=== PATIENT | female | born 1995 | race Caucasian/White ===

== ENCOUNTER → 2023-04-08 11:23 | Outpatient (CLI) | payer BC, SELFPAY ==
--- NOTE | 2023-04-08 09:36 | DI.RAD_ITS ---
Exam(s) XR WRIST LT COMP NAVICULAR EXAM: XR WRIST LT COMP NAVICULAR CLINICAL HISTORY: PAIN LEFT WRIST M25.532 INJURY CONCERN SCAPHOID INJURY DISTAL WRIST FX. TECHNIQUE: 2D digital imaging was performed of the left wrist. Four images were obtained. Scaphoid , PA, oblique and lateral views were obtained. COMPARISON: No exams were available for comparison FINDINGS: BONES: No acute fracture is present. No bony destructive lesion is seen. JOINTS: The carpal bones are normally aligned. SOFT TISSUE: Normal. IMPRESSION: Unremarkable radiographs of the left wrist. DATA REPOSITORY: RADIATION DOSE DELIVERED:
== END ==
PROVIDERS: PCP Family Medicine; Visit Provider Physician Assistant Medical
DX: M25.532 Pain in left wrist (principal)
CPT/HCPCS: 73110

== ENCOUNTER 2023-09-02 10:15 | Outpatient (CLI) | payer BC, SELFPAY ==
[2023-09-02 10:40] LABS: HCG Quant, Pregnancy 5159 mIU/mL (1-3)
== END 2023-09-02 10:16 | disposition home or self-care (01) ==
LOC: LBO 10:16
PROVIDERS: PCP Family Medicine; Visit Provider Obstetrics & Gynecology
DX: O03.9 Complete or unspecified spontaneous abortion without complication (principal)
CPT/HCPCS: 36415; 84702

== ENCOUNTER 2023-09-05 05:01 | Outpatient (CLI) | payer BC, SELFPAY ==
[2023-09-05 14:51] LABS: HCG Quant, Pregnancy 2848 mIU/mL (1-3)
== END 2023-09-05 05:02 | disposition home or self-care (01) ==
LOC: LBO 05:01
PROVIDERS: PCP Family Medicine; Visit Provider Obstetrics & Gynecology
DX: O03.9 Complete or unspecified spontaneous abortion without complication (principal)
CPT/HCPCS: 36415; 84702

== ENCOUNTER 2023-09-07 07:39 | Emergency (ER) | payer BC, SELFPAY ==
[2023-09-07 07:41] VITALS: BP 165/79; PULSE 82; RESP 14; TEMP 36.4; O2SAT 100
--- NOTE | 2023-09-07 07:52 | ED.GENADUL_ITS ---
HPI General Mode of arrival: ambulatory . Date/Time Provider Initiated Documentation: 09/07/23 07:39 . Limitations to Documentation: no limitations . Information obtained by: patient . History of Present Illness 28 year old F presents to the emergency department with the chief complaint of Pelvic cramping and vaginal bleeding, described as moderate, Quality is described as constant, Patient reports no radiation. Patient started experiencing this hour(s) (3) and it has been constant. No relieving factors improve symptom(s), No exacerbating factors reported . Patient notes denies chest pain, fever/chills and shortness of breath. Related Data Home Medications Medication Instructions Recorded Confirmed [id number] 18 mg-FA 400 1 tab PO DAILY 09/02/23 09/07/23 mcg-calcium 500 mg-vit K 50 mcg tablet (Women's Multivitamin) ibuprofen 800 mg tablet 800 mg PO Q8H #60 tabs 09/07/23 ondansetron 4 mg disintegrating 4 mg PO Q8H PRN nausea and 09/07/23 tablet vomiting #30 tabs Previous Rx's Medication Instructions Recorded ibuprofen 800 mg tablet 800 mg PO Q8H #60 tabs 09/07/23 ondansetron 4 mg disintegrating 4 mg PO Q8H PRN nausea and 09/07/23 tablet vomiting #30 tabs Allergies Allergy/AdvReac Type Severity Reaction Status Date / Time aspirin Allergy Mild Nausea Unverified 09/07/23 08:20 General Stated Complaint: CLINICAL APPLICATIONS MANAGER SIMIN: 3 Review of Systems All systems reviewed & are unremarkable except as noted in HPI and below Constitutional Constitutional: Denies chills and Denies fever(s) Cardiovascular Cardiovascular: Denies chest pain and Denies dyspnea Respiratory Respiratory: Denies cough and Denies dyspnea Gastrointestinal Gastrointestinal: Reports cramping, Reports nausea and Reports vomiting Genitourinary Genitourinary: Denies dysuria Exam Const General: no acute distress Orientation: alert HENRI Head: normal to inspection Ears: external ears normal General nose exam: external nose normal Mouth: moist mucous membranes Eyes General: appearance normal, both eyes and all related structures Neck Neck: normal visual inspection Resp Effort & Inspection: normal respiratory effort and able to speak in complete sentences Cardio Rate: regular rate GI Palpation: soft, not firm and no guarding Skin General skin exam: no rashes or lesions noted Neuro General: patient alert and patient oriented x3 Extrem General: normal to inspection Psych Mental Status: mental status grossly normal Course Vital Signs Vital signs: Vital Signs Temperature 36.4 C L 09/07/23 07:41 Pulse 82 09/07/23 07:41 Respiratory Rate 14 09/07/23 07:41 Blood Pressure 165/79 H 09/07/23 07:41 Pulse Oximetry 100 09/07/23 07:41 Temperature 36.4 C L 09/07/23 07:41 Pulse 82 09/07/23 07:41 Respiratory Rate 14 09/07/23 07:41 Respiratory Effort Normal, Non-Labored 09/07/23 07:48 Blood Pressure 165/79 H 09/07/23 07:41 Blood Pressure Position Supine 09/07/23 07:41 Pulse Oximetry 100 09/07/23 07:41 Oxygen Delivery Method Room Air 09/07/23 07:41 Oxygen Flow Rate 0 09/07/23 07:41 Pain Level 8 09/07/23 07:41 Medical Decision Making 28-year-old female who states she had a miscarriage about 2 weeks ago and finished a course of miso, comes in with increased pelvic cramping and vaginal bleeding starting this morning. She states she is wearing a adult size pad and is soaking through that every hour. Denies any trouble breathing, loss of consciousness. She called her CLINICAL APPLICATIONS MANAGER who referred her here for blood work and an ultrasound. Patient hemodynamically stable on arrival, abdomen is not distended, no guarding or rebound localizes the pain to the lower pelvic region. Will proceed with CBC CMP and obtain pelvic ultrasound and consult CLINICAL APPLICATIONS MANAGER. Patient's labs unremarkable, no significant anemia. Ultrasound read as cystic structure in the vaginal canal likely the retained products of conception now in the vaginal canal. Patient states that she had a large what she thought was a clot shortly after the ultrasound. Will consult CLINICAL APPLICATIONS MANAGER Dr. Corbett evaluated the patient, request patient to have a heating pad and will observe for an hour or 2. Feel she will likely be able to go home Patient feeling better requesting discharge, only having mild cramping every 30 to 45 minutes. No bleeding. She is stable for discharge, will follow-up with CLINICAL APPLICATIONS MANAGER and return precautions given Differential Diagnosis Differential Diagnosis: retained products of conception, vaginal bleeding Medical Records Medical records reviewed: Yes I reviewed the patient's medical records. Imaging Data Radiologic Study: Attestation: I personally reviewed and interpreted this imaging study as follows: Imaging: Ultrasound and CT Scan Radiologist's impression: IMPRESSION: 1. 2.5 centimeter cyst 6 structure within the vagina likely represents the gestational sac. The endometrium is thickened. 2. Unremarkable bilateral ovaries. 3. The findings were called to Dr. Self of the emergency department. Lab Data Lab results reviewed: Yes I reviewed the patient's lab results. Quality:SDOH Health Related Social Needs: No Data to Display PFSH All Active Problems (Updated 09/07/23 @ 10:48 by Real Luque MD) Pelvic cramping (Acute) Miscarriage (Acute) Elevated blood-pressure reading without diagnosis of hypertension (Acute) Class 1 obesity with body mass index (BMI) of 33.0 to 33.9 in adult (Acute) Marijuana dependence (Acute) Anxiety (Chronic) Nicotine dependence with current use (Acute) Lactose intolerance (Acute 10/21/11) Idiopathic scoliosis (Acute 01/30/13) appropriate f/u by chiropractic Family History Mother Multiple food allergies Father Chronic arm pain Essential hypertension Other Diabetes PGM Alcohol abuse recovered PGF Personal history of malignant neoplasm PGF-pancreatic,lung Myocardial infarction PGF Social History Smoking/Tobacco Use Status: Former Tobacco Use Smokeless tobacco user: dissolvable tobacco Quit status: quit date established Smoking risk assessment performed?: Yes Alcohol Intake: current Alcohol Intake frequency: a few times a week Alcohol type: other Drug use: Daily Substance use type: marijuana Do you feel safe at home: Yes Do you feel safe in your relationship?: Yes History History 1 Para 0 Hx # Term Pregnancies 0 Multiple births 0 Hx # Pregnancies 0 Ectopic pregnancies 0 AB induced 0 Hx Number of Living Children 0 AB spontaneous 0 PAWSS Have you Been Recently Intoxicated or Drunk Within the Last 30 days?: No Have you Ever Experienced Previous Episodes of Alcohol Withdrawal?: No Have you ever Experienced Withdrawal Seizures?: No Have you ever Experienced Delirium Tremens(DT)s?: No Have you ever undergone Alcohol Rehabilitation Treatment (i.e, inpt ot outpatient treatment programs)?: No Have you ever Experienced Blackouts?: No Have you ever Combined Alcohol with other Downers within the last 90 days?: No Have you ever Combined Alcohol with any other Substance of Abuse during the last 90 days?: No Positive Blood Alcohol level on Presentation? [PCS.BAL]: No Evidence of Increased Autonomic Activity (i.e. HR>120, tremor, sweating, agitation, nausea)?: No Result: 0 Discharge Plan Disposition Patient Disposition: Home Condition: Stable Discharge Details Clinical Impression: Miscarriage, Pelvic cramping Primary Care Provider: Angy Castro ED Provider: Real Luque [place] Meds and New Rx's Prescriptions: New ibuprofen 800 mg tablet 800 mg PO Q8H Qty: 60 1RF ondansetron 4 mg tablet,disintegrating 4 mg PO Q8H PRN (Reason: nausea and vomiting) Qty: 30 0RF Continued Women's Multivitamin 18 mg-400 mcg- 500 mg-50 mcg tablet 1 tab PO DAILY Discharge Instructions Additional Instructions: Your ultrasound showed that you passed your products of conception Follow-up with CLINICAL APPLICATIONS MANAGER If you feel more ill, have severe worsening pain, or new symptoms such as difficulty breathing return to the emergency department
--- NOTE | 2023-09-07 08:15 | DI.US_ITS ---
Exam(s) US PELVIS TRANSVAGINAL EXAM: US PELVIS TRANSVAGINAL CLINICAL HISTORY: ?retained products TECHNIQUE: Transabdominal and transvaginal imaging was performed using standard protocol. COMPARISON: US US OB 1ST TRIMESTER from 08/25/2023 FINDINGS: The transabdominal images are extremely limited due to patient body habitus and lack of urinary bobo dder distention. The trans vaginal images are limited by shadowing artifact. UTERUS: Anteverted. 8.9 x 5.1 x 4.2 cm Endometrium: Ranging between 11 and 18 millimeters. Myometrium: Unremarkable. Cervix: Unremarkable. Vaginal canal: A 2.5 centimeter diameter cystic structure is noted which may represent the distention all sac although smaller in appearance when compared the previous exam. OVARIES: Right: Cyst or mass: None. Left: Cyst or mass: None. DOPPLER: Color: Symmetric and uniform flow to both ovaries. No hyperemia. CUL-DE-SAC: Free fluid: None. IMPRESSION: 1. 2.5 centimeter cyst 6 structure within the vagina likely represents the gestational sac. The endo metrium is thickened. 2. Unremarkable bilateral ovaries. 3. The findings were called to Dr. Self of the emergency department. DATA REPOSITORY:
[2023-09-07] MEDS: Ondansetron 4 MG/2 ML VIAL IVP (08:18)
[2023-09-07] MEDS: Ketorolac 15 MG/ML VIAL IVP (08:18)
[2023-09-07] MEDS: Normal Saline Flush 10 ML SYR IVP ×2 (08:18→09:15)
[2023-09-07 08:26] LABS: Abs Immature Grans 0.08 10^3/uL (0.0-0.06); Absolute Eosinophil Count 0.05 10^3/uL (0.0-0.7); Absolute Lymphocyte Count 1.55 10^3/uL (1.2-3.4); Absolute Monocyte Count 1.02 10^3/uL (0.1-0.8); Absolute Neutrophil Count 10.98 10^3/uL (1.2-6.7); Basophils % 0.4; Eosinophils % 0.4; HCT 40.6 % (36.0-46.0); Immature Grans % 0.6; Lymphocytes % 11.3; MCH 32.2 pg (27.0-33.0); MCHC 34.5 % (32.0-36.0); MCV 93 fL (80-95); MPV 9.5 fL (8.0-11.0); Monocytes % 7.4; Neutrophils % 79.9; Platelet Count 336 10^3/uL (130-400); RBC 4.35 10^6/uL (3.93-5.22); RDW 12.2 % (11.7-14.6); RDW-SD 41.9 fL; WBC 13.74 10^3/uL (4.4-10.8)
[2023-09-07 08:28] LABS: Absolute Basophil Count 0.05 10^3/uL (0.0-0.2)
[2023-09-07 08:39] LABS: Clarity Cloudy (Clear)
[2023-09-07 08:40] LABS: Bilirubin Color Interference (Negative); Blood Color Interference (Negative); Glucose Color Interference mg/dL (Negative); Ketones Color Interference mg/dL (Negative); Leukocyte Esterase Color Interference (Negative); Nitrite Color Interference (Negative); Urobilinogen Color Interference mg/dL (Up to 0.2)
[2023-09-07 08:42] LABS: C & S Indicated? Yes; RBC >50 HPF (0-2)
[2023-09-07 08:44] LABS: ALT 19 U/L (14-59); AST 10 U/L (15-37); Alkaline Phosphatase 55 U/L (46-116); Anion Gap 14.5 mmol/L (3-11); BUN 11 mg/dL (7-18); Bilirubin, Total 0.5 mg/dL (0.2-1.0); CO2 20.5 mmol/L (21.0-32.0); CREATININE 0.8 mg/dL (0.55-1.02); Chloride 105 mmol/L (98-107); Estimated GFR 102.22 (mL/min/1.73m2); Glucose 119 mg/dL (74-106); Magnesium 1.7 mg/dL (1.8-2.4); Potassium 3.9 mmol/L (3.5-5.1); Sodium 140 mmol/L (136-145); Total Protein 7.4 g/dL (6.4-8.2)
[2023-09-07] MEDS: MORPHine 4 MG/ML SYR IVP (09:05)
[2023-09-07] MEDS: Normal Saline 1,000 ML 1000 ML IV (09:14)
[2023-09-07 09:18] VITALS: BP 133/77; PULSE 62; RESP 12; O2SAT 99
[2023-09-07 09:19] LABS: HCG Quant, Pregnancy 1451 mIU/mL (1-3)
--- NOTE | 2023-09-07 09:42 | GCONE_ITS ---
Date of service: 09/07/23 Time of Service: 09:42 Assessment and Plan Assessment and plan (1) Miscarriage: Status: Acute Assessment and plan: Increasing bleeding and cramping today with passing of gestational sac. Now bleeding is appropriate. I do not feel that she is in need of surgical intervention. Precautions were given. Follow-up for quantitative hCG on a weekly basis until less than 5. Ibuprofen sent to the pharmacy. History of Present Illness History of Present Illness Chief Complaint: Miscarriage Narrative: Patient is a 28-year-old G1, P0 well-known to our service. She was diagnosed with early , followed by missed . Initially she received misoprostol approximately 12 days ago. She had a bleeding response to this and had diminished quantitative hCG from 51,000-28,000. She continued to have some mild to moderate bleeding and called earlier this morning with a significant increase in crampiness, pain, and heavier vaginal bleeding. She was seen in the emergency department for evaluation with stable vital signs, stable hemoglobin at 14, and an ultrasound showing gestational sac in the vaginal vault which subsequently passed. Her bleeding has significantly diminished. She continues to have some crampy lower abdominal discomfort. Will monitor here for the next 1 to 2 hours. Heating pad for her low back. My anticipation is that she will be discharged home with close follow-up and serial quantitative hCGs until her quantitative hCG is less than 5. Prescription was sent to the pharmacy for ibuprofen. PFSH All Active Problems (Updated 09/07/23 @ 09:35 by Real Luque MD) Miscarriage (Acute) Elevated blood-pressure reading without diagnosis of hypertension (Acute) Class 1 obesity with body mass index (BMI) of 33.0 to 33.9 in adult (Acute) Marijuana dependence (Acute) Anxiety (Chronic) Nicotine dependence with current use (Acute) Lactose intolerance (Acute 10/21/11) Idiopathic scoliosis (Acute 01/30/13) appropriate f/u by chiropractic Family History Mother Multiple food allergies Father Chronic arm pain Essential hypertension Other Diabetes PGM Alcohol abuse recovered PGF Personal history of malignant neoplasm PGF-pancreatic,lung Myocardial infarction PGF Social History Smoking/Tobacco Use Status: Former Tobacco Use Smokeless tobacco user: dissolvable tobacco Quit status: quit date established Smoking risk assessment performed?: Yes Alcohol Intake: current Alcohol Intake frequency: a few times a week Alcohol type: other Drug use: Daily Substance use type: marijuana Do you feel safe at home: Yes Do you feel safe in your relationship?: Yes History History 2 1 Para 0 Hx # Term Pregnancies 0 Multiple births 0 Hx # Pregnancies 0 Ectopic pregnancies 0 AB induced 0 Hx Number of Living Children 0 AB spontaneous 0 Results Last Vital Signs Temp 97.5 F L 09/07/23 07:41 Pulse 62 09/07/23 09:18 Resp 12 09/07/23 09:18 BP 133/77 09/07/23 09:18 Pulse Ox 99 09/07/23 09:18 Labs 09/07/23 08:12 09/07/23 08:12 Labs: Laboratory Results - last 24 hr 09/07/23 09/07/23 07:59 08:12 WBC 13.74 H RBC 4.35 Hgb 14.0 Hct 40.6 MCV 93 MCH 32.2 MCHC 34.5 RDW 12.2 Plt Count 336 MPV 9.5 Immature Gran % 0.6 Neutrophils % 79.9 Lymphocytes % 11.3 Monocytes % 7.4 Eosinophils % 0.4 Basophils % 0.4 Nucleated RBC % 0.0 Absolute Neutrophils 10.98 H Absolute Lymphocytes 1.55 Absolute Monocytes 1.02 H Absolute Eosinophils 0.05 Absolute Basophils 0.05 Sodium 140 Potassium 3.9 Chloride 105 Carbon Dioxide 20.5 L Anion Gap 14.5 H BUN 11 Creatinine 0.8 Est GFR (CKD-EPI 2020) 102.22 Glucose 119 H Calcium 9.0 Magnesium 1.7 L Total Bilirubin 0.5 AST 10 L ALT 19 Alkaline Phosphatase 55 Total Protein 7.4 Albumin 4.0 Beta HCG, Quant 1451 H Urine Color Red Urine Clarity Cloudy Urine pH Ur Specific [place] 1.030 H Urine Protein Color Interference Urine Ketones Color Interference Urine Blood Color Interference Urine Nitrite Color Interference Urine Bilirubin Color Interference Urine Urobilinogen Color Interference Ur Leukocyte Esterase Color Interference Urine RBC >50 H Urine WBC Not Applicable Ur Epithelial Cells Not Applicable Urine Crystals Not Applicable Urine Bacteria Not Applicable Urine Mucus Not Applicable Ur Culture Indicated? Yes Urine Glucose Color Interference Patient ABO/Rh B Positive Antibody Screen NEGATIVE
[2023-09-07 11:01] VITALS: BP 130/60; PULSE 78; RESP 16; TEMP 37.2; O2SAT 99
== END 2023-09-07 11:02 | disposition home or self-care (01) ==
PROVIDERS: Emergency Provider Emergency Medicine; PCP Family Medicine
DX: O03.6 Delayed or excessive hemorrhage following complete or unspecified spontaneous abortion (principal); R11.2 Nausea with vomiting, unspecified; Z87.891 Personal history of nicotine dependence
CPT/HCPCS: 36415; 80053; 86850; 86900; 86901; 96361; 96374; 96375; 99284; 76830; 76856; 81003; 81015; 83735; 84702; 85025; 87086; J1885; J2270; J2405

== ENCOUNTER 2023-09-13 05:18 | Outpatient (CLI) | payer BC, SELFPAY ==
[2023-09-13 16:47] LABS: HCG Quant, Pregnancy 19 mIU/mL (1-3)
== END 2023-09-13 05:19 | disposition home or self-care (01) ==
LOC: LBO 05:18
PROVIDERS: Obstetrics & Gynecology; PCP Family Medicine; Visit Provider Obstetrics & Gynecology
DX: O03.9 Complete or unspecified spontaneous abortion without complication (principal)
CPT/HCPCS: 36415; 84702

== ENCOUNTER 2023-09-23 03:01 | Outpatient (CLI) | payer BC, SELFPAY ==
[2023-09-23 15:23] LABS: HCG Quant, Pregnancy 2 mIU/mL (1-3)
== END 2023-09-23 03:02 | disposition home or self-care (01) ==
LOC: LBO 03:01
PROVIDERS: Obstetrics & Gynecology; PCP Family Medicine; Visit Provider Family Medicine
DX: O03.9 Complete or unspecified spontaneous abortion without complication (principal)
CPT/HCPCS: 36415; 84702